=== PATIENT | female | born 1945 | race Caucasian/White ===

== ENCOUNTER 2018-07-21 11:49 | Observation (INO) ==
[2018-07-21] MEDS ORDERED: MAG HYDROX/ALUMINUM HYD/SIMETH 30 ML UDC PO ONE (11:58)
[2018-07-21] MEDS ORDERED: ASPIRIN 81 MG TAB.CHEW PO ONE ×2 (11:58→12:00)
[2018-07-21] MEDS ORDERED: PANTOPRAZOLE SODIUM 40 MG TABLET.EC PO ONE (11:58)
[2018-07-21] MEDS ORDERED: NITROGLYCERIN 0.4 MG/TAB BTL SL PRN (12:00)
[2018-07-21 12:20] LABS: Hematocrit 43.3 % (37.0-47.0); Hemoglobin 14.4 gm/dL (12.5-16.0); Mean Cell Volume 90.6 fl (78-100); Mean Corpuscular Hemoglobin 30.1 pg (27-31); Mean Corpuscular Hgb Conc 33.3 g/dl (32-36); Mean Platelet Volume 9.9 fl (8-12.5); Neutrophil # 10.5 K/mm3 (1.3-6.0); Neutrophil % 72.9 % (42-75.0); Platelet Count 275 K/mm3 (150-450); Red Blood Count 4.78 M/mm3 (4.2-5.4); Red Cell Distribution Width 15.8 % (11.5-14.0); White Blood Count 14.4 K/mm3 (4.0-10.5)
--- NOTE | 2018-07-21 12:21 | ERNOTE ---
Chest Pain/Cardiac HPI Date of Service: 07/21/18 Chief Complaint: Chest Pain Time Seen by Provider: 07/21/18 11:57 Source: patient Exam Limitations: no limitations Immunizations: IMMUNIZATION HX Immunizations Up to Date Yes History of Influenza Vaccine Yes Hx Pneumococcal Vaccination Yes Allergies/Adverse Reactions: Allergies propoxyphene HCl [From Darvon] Allergy (Severe, Verified 07/21/18 15:40) Rapid heart rate hydrocodone [From Panlor (hydrocodone-acetamin)] Adverse Reaction (Mild, Verified 07/21/18 15:40) Itching Home Medications: HOME MEDICATIONS RX: Aspirin [Aspirin Chewable] 81 mg PO DAILY 07/14/12 [Last Taken Unknown] albuterol sulfate HFA 90 mcg/actuation aerosol inhaler 2 puff IH Q4H PRN #8.5 g 12/30/17 [Last Taken Unknown] metoprolol succinate ER 50 mg tablet,extended release 24 hr 75 mg PO DAILY tab 01/21/18 [Last Taken Unknown] fluticasone 50 mcg/actuation nasal spray,suspension 1 spray DENY BID PRN #16 g 03/04/18 [Last Taken Unknown] lacosamide 150 mg tablet 150 mg PO DAILY tab 03/04/18 [Last Taken Unknown] lacosamide 200 mg tablet 200 mg PO 1900 30 Days tab 03/04/18 [Last Taken Unknown] omeprazole 20 mg tablet,delayed release 20 mg PO DAILY #90 tab 05/27/18 [Last Taken Unknown] acetaminophen 325 mg tablet 325 mg PO Q6H PRN 06/11/18 [Last Taken Unknown] amitriptyline 25 mg tablet 25 mg PO HS #30 tab 06/11/18 [Last Taken Unknown] lamotrigine ER 200 mg tablet,extended release 24 hr 100 mg PO BID tab 07/01/18 [Last Taken Unknown] RX: Methocarbamol [Robaxin] 500 mg PO TID 07/21/18 [Last Taken Unknown] RX: predniSONE [Prednisone] 10 mg PO DAILY 07/21/18 [Last Taken Unknown] Timolol Maleate 1 drop LEFTEYE BID 07/21/18 [Last Taken Unknown] Narrative: 72-year-old female comes to the emergency department complaining of 30 minutes of substernal grabbing type chest discomfort. She says it radiates to her left axilla. It is not associated with any shortness of breath nausea or vomiting. The patient has not had symptoms like this before. She reports she has been belching a great deal. Does not get worse with exercise or exertion. Rest does not improve it. Has no history of coronary disease. Patient does have a history of lupus as well as gastroesophageal reflux disease. Last meal was this morning around 8 AM. The patient denies any coughing. She denies any diarrhea fever headache blurred vision or other changes Review of Systems - Review of Systems Constitutional: Present: no symptoms reported EYE: Present: no symptoms reported ENT: Present: no symptoms reported Respiratory: Present: no symptoms reported. Absent: shortness of breath, cough, orthopnea Cardiology: Present: See HPI, chest pain. Absent: palpitations, syncope Gastrointestinal/Abdominal: Present: no symptoms reported. Absent: nausea, vomiting, abdominal pain Genitourinary: Present: no symptoms reported Musculoskeletal: Present: no symptoms reported Skin: Present: no symptoms reported Neurological: Present: no symptoms reported Endocrine: Present: no symptoms reported Hematologic/Lymphatic: Present: no symptoms reported Psych: Present: no symptoms reported All Other Systems: All systems neg except as marked Medical History (Last Reviewed 07/21/18 @ 15:37 by Zulma Agudelo RN) Labyrinthitis Onset Date: Unknown Vertebral compression fracture Onset Date: Unknown DJD (degenerative joint disease) Onset Date: Unknown Hypertension Onset Date: Unknown Anemia Onset Date: Unknown Brain aneurysm Onset Date: ~12/2014 coil placed [facility] Headache Onset Date: Unknown Knee joint effusion Onset Date: Unknown Right ACL tear Onset Date: ~10/17/12 ACL/PCL Right knee-partial Sarcoidosis Onset Date: Unknown Shingles Onset Date: Unknown Asthma Onset Date: Unknown Epileptic seizure, generalized Onset Date: Unknown Dr. Garcia [facility] Neurology-results from the aneurysms-EEG Surgical History: Surgical History (Last Reviewed 07/21/18 @ 15:37 by Zulma Agudelo RN) History of colonoscopy Onset Date: ~2011 Dr. Al hyperplastic polyp, repeat 5 years; History of dilation and curettage Onset Date: Unknown History of esophagogastroduodenoscopy (EGD) Onset Date: ~09/14/16 repeat in 5 years History of lumpectomy Onset Date: Unknown History of nephrectomy Onset Date: Unknown after trauma age 15 History of splenectomy Onset Date: Unknown Family History: Family History (Last Updated 07/21/18 @ 15:40 by Zulma Agudelo RN) Father Myocardial infarction Hypertension Macular degeneration CVA (cerebral vascular accident) Family/Other Diabetes Grandparent Cancer sibling/unsure Glaucoma Grandparent Mother Arthritis Myocardial infarction Glaucoma Hypertension Son Lupus Aunt Glaucoma Uncle Glaucoma Son DM type 2 (diabetes mellitus, type 2) Daughter Colon malignancy Social History: Preferred Language Argentine Do you have any anabaptism or Yes: Confucianist cultural preference? Smoking Status Never smoker Abuse History No History of abuse Psych History No pertinent hx Alcohol Use none Drug Use none (Last Updated 07/17/18 @ 19:56 by Pradeep Mendez DO) No Social History Section defined Physical Exam - Physical Exam General Appearance: Present: wd/wn, alert, other - Patient does appear uncomfortable holding her right hand against her breast bone Head Exam: Present: normal inspection, no evidence of injury Eye Exam: Normal inspection: bilateral, PERRL: bilateral, EOMI: bilateral Ears, Nose, Throat: Present: normal ENT inspection, normal pharynx Neck: Present: normal inspection, nontender Respiratory: Present: no respiratory distress, normal breath sounds, no accessory muscle use, chest nontender, lungs clear Cardiovascular/Chest: Present: regular rate, rhythm, no murmur, normal peripheral pulses Gastrointestinal/Abdominal: Present: normal bowel sounds, nontender, nondistended, soft Back Exam: Present: normal inspection, normal range of motion, no CVA tenderness, no vertebral tenderness Extremity Exam: Present: normal inspection, non-tender, normal range of motion, no edema Neurological Exam: Present: alert, oriented, normal mood/affect, no motor/sensory deficits Skin Exam: Present: normal color, warm/dry Lymphatic Exam: Present: no adenopathy Progress - Results and Orders Patient's Lab Results:: I have reviewed the patient's lab results. - Vital Signs Patient's Vital Signs:: I have reviewed the patient's vital signs. Vital Signs: Vital Signs 07/21/18 11:52 Temperature 36.3 C Pulse Rate 81 Respiratory Rate 16 Blood Pressure 199/97 H O2 Sat by Pulse Oximetry 94 - EKG EKG #1 EKG: NSR EKG read: Interp. by me EKG Comments: Sinus rhythm ventricular rate of 81, [place] interval is slightly long at 209, axis is normal. No ST elevation. No T wave abnormalities - Progress/Reassessment Chief Complaint: Chest Pain Progress:: Improved Progress Note-Subjective: 07/21/18 12:45 P. Patient received Maalox. She reported complete resolution of her symptoms. 10-15 minutes later they started to come back. The patient was given sublingual nitroglycerin. EKG is normal. Had good response to Maalox. First set of troponin is negative. Plan - Plan Plan: I spoke with Dr. Duque. The patient had a stress test but it was many years ago. He agrees with admitting the patient to the hospital as observation and getting a stress test. The patient is presently chest pain-free. I will apply Nitropaste to make sure the pain stays away Departure Clinical Impression: Chest pain - Departure Disposition: Still a patient Condition: Good
[2018-07-21 12:35] LABS: Anion Gap 11.9 mmol/L (6.8-13.8); Blood Urea Nitrogen 13 mg/dL (3-23); Carbon Dioxide 26.8 mmol/L (24-32.6); Chloride 99 mmol/L (97-106); Glucose * 91 mg/dL (70-110); Potassium 3.7 mmol/L (3.4-4.6); Sodium 134 mmol/L (132-142); Total Protein 6.8 gm/dL (6.2-8.2)
[2018-07-21 12:36] LABS: ALT 41 U/L (19-67); AST 14 U/L (0-48); Alkaline Phosphatase * 61 U/L (50-170); Bilirubin, Total 0.6 mg/dL (0.0-1.1); Ca. Corrected For Albumin 9.5 mg/dL (8.4-10.2); Troponin I Less than 0.017 ng/mL (0.00-0.10)
--- NOTE | 2018-07-21 20:20 | HP ---
Chief Complaint - Chief Complaint Date of Service: 07/21/18 Time of Service: 16:00 Chief Complaint: Chest Pain History of Present Illness: Abbey is a 72 yo female with Sarcoidosis who presents with chest pain. She denies any out of the ordinary activities, change in diet, or medication change. She has otherwise been feeling well but today and mid sternum chest pain. It has improved now. She thinks it improved on its own. Initial work up in the ER was negative for acute WI with normal troponin and normal EKG. Medical History (Last Reviewed 07/21/18 @ 15:37 by Zulma Agudelo RN) Labyrinthitis Onset Date: Unknown Vertebral compression fracture Onset Date: Unknown DJD (degenerative joint disease) Onset Date: Unknown Hypertension Onset Date: Unknown Anemia Onset Date: Unknown Brain aneurysm Onset Date: ~12/2014 coil placed [facility] Headache Onset Date: Unknown Knee joint effusion Onset Date: Unknown Right ACL tear Onset Date: ~10/17/12 ACL/PCL Right knee-partial Sarcoidosis Onset Date: Unknown Shingles Onset Date: Unknown Asthma Onset Date: Unknown Epileptic seizure, generalized Onset Date: Unknown Dr. Garcia [facility] Neurology-results from the aneurysms-EEG Surgical History: Surgical History (Last Reviewed 07/21/18 @ 15:37 by Zulma Agudelo RN) History of colonoscopy Onset Date: ~2011 Dr. Al hyperplastic polyp, repeat 5 years; History of dilation and curettage Onset Date: Unknown History of esophagogastroduodenoscopy (EGD) Onset Date: ~09/14/16 repeat in 5 years History of lumpectomy Onset Date: Unknown History of nephrectomy Onset Date: Unknown after trauma age 15 History of splenectomy Onset Date: Unknown Family History: Family History (Last Updated 07/21/18 @ 15:40 by Zulma Agudelo RN) Father Myocardial infarction Hypertension Macular degeneration CVA (cerebral vascular accident) Family/Other Diabetes Grandparent Cancer sibling/unsure Glaucoma Grandparent Mother Arthritis Myocardial infarction Glaucoma Hypertension Son Lupus Aunt Glaucoma Uncle Glaucoma Son DM type 2 (diabetes mellitus, type 2) Daughter Colon malignancy Social History: Patient Lives/Resources With Spouse Utilized Preferred Language [place] Do you have any yarsani or No cultural preference? Smoking Status Never smoker Have you smoked in the past 12 No months Do you dip or chew tobacco No Abuse History No History of abuse Psych History No pertinent hx Alcohol Use none Drug Use none (Last Updated 07/17/18 @ 19:56 by Pradeep Mendez DO) No Social History Section defined Review Of Systems (GEN) - Review of Systems Generalized/Overall Review: Present: Weakness. Absent: Chills, Fever EENTM: Present: No Symptoms Reported Respiratory: Absent: Cough, Shortness of Breath Cardiac: Present: Chest Pain. Absent: Edema Abdominal: Absent: Nausea, Vomiting Genitourinary: Present: No Symptoms Reported Musculoskeletal: Present: Back Pain Neurological: Present: No Symptoms Reported, Weakness Skin: Present: No Symptoms Reported Endocrine: Present: No Symptoms Reported Immunizations: IMMUNIZATION HX Immunizations Up to Date Yes History of Influenza Vaccine Yes Hx Pneumococcal Vaccination Yes Allergies/Adverse Reactions: Allergies Allergy/AdvReac Type Severity Reaction Status Date / Time propoxyphene HCl Allergy Severe Rapid Verified 07/31/18 10:12 [From Darvon] heart rate hydrocodone AdvReac Mild Itching Verified 07/31/18 10:12 [From Panlor (hydrocodone-acetamin)] Home Medications: HOME MEDICATIONS Aspirin [Aspirin Chewable] 81 mg PO DAILY 07/14/12 [Last Taken Unknown] albuterol sulfate HFA 90 mcg/actuation aerosol inhaler 2 puff IH Q4H PRN #8.5 g 12/30/17 [Last Taken Unknown] metoprolol succinate ER 50 mg tablet,extended release 24 hr 75 mg PO DAILY tab 01/21/18 [Last Taken Unknown] fluticasone 50 mcg/actuation nasal spray,suspension 1 spray DENY BID PRN #16 g 03/04/18 [Last Taken Unknown] lacosamide 150 mg tablet 150 mg PO DAILY tab 03/04/18 [Last Taken Unknown] lacosamide 200 mg tablet 200 mg PO 1900 30 Days tab 03/04/18 [Last Taken Unk nown] omeprazole 20 mg tablet,delayed release 20 mg PO DAILY #90 tab 05/27/18 [Last Taken Unknown] acetaminophen 325 mg tablet 325 mg PO Q6H PRN 06/11/18 [Last Taken Unknown] amitriptyline 25 mg tablet 25 mg PO HS #30 tab 06/11/18 [Last Taken Unknown] lamotrigine ER 200 mg tablet,extended release 24 hr 100 mg PO BID tab 07/01/18 [Last Taken Unknown] Timolol Maleate 1 drop LEFTEYE BID 07/21/18 [Last Taken Unknown] predniSONE [Prednisone] 10 mg PO DAILY 07/21/18 [Last Taken Unknown] methocarbamol 500 mg tablet 500 mg PO TID PRN #90 tab 07/24/18 [Last Taken Unknown] brinzolamide 1 %-brimonidine 0.2 % eye drops,suspension 1 drp OP ONCE #8 ml 07/31/18 [Last Taken Unknown] Exam - Exam Vital Signs: Vital Signs - Last Taken Temp 36.5 C 07/21/18 15:46 Pulse 75 07/21/18 15:46 Resp 18 07/21/18 15:46 BP 156/92 H 07/21/18 15:46 Pulse Ox 95 07/21/18 15:46 Constitutional: Present: Alert, Oriented x3, Cooperative, No distress ENT Exam: Present: hearing grossly normal Eye Exam: bilateral eye: normal inspection Respiratory: Present: lungs clear, normal breath sounds Cardiovascular/Chest: Present: regular rate, rhythm, no murmur Peripheral Pulses: radial (R): 2+, radial (L): 2+ Abdomen: Present: Normal bowel sounds, soft, nontender, nondistended Skin Exam: Present: normal color, warm/dry, no cyanosis Appearance: Present: appropriate appearance, appropriate insight Eye contact: Present: cooperative, good eye contact, normal speech Thoughts: Present: normal thought pattern, no apparent hallucination Diagnostic Studies: Abnormal Lab Results 07/21/18 07/21/18 Range/Units 12:15 12:15 WBC 14.4 H (4.0-10.5) K/mm3 RDW 15.8 H (11.5-14.0) % Immature Gran # (Auto) 0.04 H (0.000-0.0310) K/mm3 Lymphocytes % 15.1 L (20-51) % Monocytes % 10.1 H (0.0-9) % Neutrophils # 10.5 H (1.3-6.0) K/mm3 Monocytes # 1.5 H (0.0-1.0) k/mm3 Albumin 3.0 L (3.4-5.0) gm/dl Laboratory Results WBC 14.4 K/mm3 (4.0-10.5) H 07/21/18 12:15 RBC 4.78 M/mm3 (4.2-5.4) 07/21/18 12:15 Hgb 14.4 gm/dL (12.5-16.0) 07/21/18 12:15 Hct 43.3 % (37.0-47.0) 07/21/18 12:15 MCV 90.6 fl (78-100) 07/21/18 12:15 MCH 30.1 pg (27-31) 07/21/18 12:15 MCHC 33.3 g/dl (32-36) 07/21/18 12:15 RDW 15.8 % (11.5-14.0) H 07/21/18 12:15 Plt Count 275 K/mm3 (150-450) 07/21/18 12:15 MPV 9.9 fl (8-12.5) 07/21/18 12:15 Immature Gran % (Auto) 0.30 % (0.001-0.429) 07/21/18 12:15 Immature Gran # (Auto) 0.04 K/mm3 (0.000-0.0310) H 07/21/18 12:15 Neutrophils % 72.9 % (42-75.0) 07/21/18 12:15 Lymphocytes % 15.1 % (20-51) L 07/21/18 12:15 Monocytes % 10.1 % (0.0-9) H 07/21/18 12:15 Eosinophils % 1.3 % (0.0-3.0) 07/21/18 12:15 Basophils % 0.3 % (0.0-1.0) 07/21/18 12:15 Nucleated RBC % 0.0 k/mm3 (0-1) 07/21/18 12:15 Neutrophils # 10.5 K/mm3 (1.3-6.0) H 07/21/18 12:15 Lymphocytes # 2.16 k/mm3 (1.5-3.5) 07/21/18 12:15 Monocytes # 1.5 k/mm3 (0.0-1.0) H 07/21/18 12:15 Eosinophils # 0.2 k/mm3 (0.0-0.7) 07/21/18 12:15 Absolute Basophils 0.1 k/mm3 (0.0-0.1) 07/21/18 12:15 Sodium 134 mmol/L (132-142) 07/21/18 12:15 Plasma Sodium 134 mmol/L (130-142) 07/21/18 12:15 Potassium 3.7 mmol/L (3.4-4.6) 07/21/18 12:15 Chloride 99 mmol/L (97-106) 07/21/18 12:15 Carbon Dioxide 26.8 mmol/L (24-32.6) 07/21/18 12:15 Anion Gap 11.9 mmol/L (6.8-13.8) 07/21/18 12:15 BUN 13 mg/dL (3-23) 07/21/18 12:15 Creatinine 0.93 mg/dL (0.4-1.4) 07/21/18 12:15 Est GFR (Non-Af Amer) 63 mL/min (60-130) 07/21/18 12:15 BUN/Creatinine Ratio 14.0 (9.0-21.6) 07/21/18 12:15 Random Glucose 91 mg/dL (70-110) 07/21/18 12:15 Calcium 9.0 mg/dL (7.9-10.9) 07/21/18 12:15 Calcium Adj for Albumin 9.5 mg/dL (8.4-10.2) 07/21/18 12:15 Total Bilirubin 0.6 mg/dL (0.0-1.1) 07/21/18 12:15 AST 14 U/L (0-48) 07/21/18 12:15 ALT 41 U/L (19-67) 07/21/18 12:15 Alkaline Phosphatase 61 U/L (50-170) 07/21/18 12:15 Troponin I Less than 0.017 ng/mL (0.00-0.10) 07/21/18 18:20 Total Protein 6.8 gm/dL (6.2-8.2) 07/21/18 12:15 Albumin 3.0 gm/dl (3.4-5.0) L 07/21/18 12:15 Assessment/Plan - Narrative Narrative: Will admit to observation for chest pain. Initial work up negative. Will place on telemetry and obtain serial troponin. Once ruled out for acute WI may be discharged to home. - Assessment/Plan (1) Chest pain Problem: Resolved Qualifiers: Chest pain type: unspecified Qualified Code(s): R07.9 - Chest pain, unspecified
--- NOTE | 2018-07-21 20:25 | DS ---
(1) Chest pain Problem: Resolved Qualifiers: Chest pain type: unspecified Qualified Code(s): R07.9 - Chest pain, unspecified Description of Stay: Abbey is a 72 yo female admitted for chest pain. Initial evaluation in the ER was negative for acute FL with normal sinus rhythm on EKG and normal troponin. She was admitted to observation and on telemetry. Repeat troponin in 6 hours was also negative and there were no electrical changes on telemetry. She will be discharged to home with plans for an outpatient stress test. Procedures Performed: none Results and Findings: Lab Pending Results 07/21/18 12:15: WBC 14.4 H, RBC 4.78, Hgb 14.4, Hct 43.3, MCV 90.6, MCH 30.1, MCHC 33.3, RDW 15.8 H, Plt Count 275, MPV 9.9, Immature Gran % (Auto) 0.30, Immature Gran # (Auto) 0.04 H, Neutrophils % 72.9, Lymphocytes % 15.1 L, Monocytes % 10.1 H, Eosinophils % 1.3, Basophils % 0.3, Nucleated RBC % 0.0, Neutrophils # 10.5 H, Lymphocytes # 2.16, Monocytes # 1.5 H, Eosinophils # 0.2, Absolute Basophils 0.1 07/21/18 12:15: Sodium 134, Plasma Sodium 134, Potassium 3.7, Chloride 99, Carbon Dioxide 26.8, Anion Gap 11.9, BUN 13, Creatinine 0.93, Est GFR (Non-Af Amer) 63, BUN/Creatinine Ratio 14.0, Random Glucose 91, Calcium 9.0, Calcium Adj for Albumin 9.5, Total Bilirubin 0.6, AST 14, ALT 41, Alkaline Phosphatase 61, Troponin I Less than 0.017, Total Protein 6.8, Albumin 3.0 L 07/21/18 18:20: Troponin I Less than 0.017 Discharge Location: Home Disposition: Home self-care Condition: Good Discharge Activity: Activity as tolerated Discharge Diet: Low salt Referrals: Andriy Duque DO [Primary Care Provider] - One Week Problem Oriented Discharge Instructions to Patient/Family: Chest Pain Observation Complete Home Medications List: Complete Home Medication List: Aspirin [Aspirin Chewable] 81 mg PO DAILY 07/14/12 albuterol sulfate HFA 90 mcg/actuation aerosol inhaler 2 puff IH Q4H PRN #8.5 g 12/30/17 metoprolol succinate ER 50 mg tablet,extended release 24 hr 75 mg PO DAILY tab 01/21/18 fluticasone 50 mcg/actuation nasal spray,suspension 1 spray DENY BID PRN #16 g 03/04/18 lacosamide 150 mg tablet 150 mg PO DAILY tab 03/04/18 lacosamide 200 mg tablet 200 mg PO 1900 30 Days tab 03/04/18 omeprazole 20 mg tablet,delayed release 20 mg PO DAILY #90 tab 05/27/18 acetaminophen 325 mg tablet 325 mg PO Q6H PRN 06/11/18 amitriptyline 25 mg tablet 25 mg PO HS #30 tab 06/11/18 lamotrigine ER 200 mg tablet,extended release 24 hr 100 mg PO BID tab 07/01/18 Methocarbamol [Robaxin] 500 mg PO TID 07/21/18 Timolol Maleate 1 drop LEFTEYE BID 07/21/18 predniSONE [Prednisone] 10 mg PO DAILY 07/21/18
[2018-07-21 21:25] VITALS: BP 133/97
== END 2018-07-21 21:40 | disposition home or self-care (01) ==
LOC: ER 11:49 → MS 11:49
PROVIDERS: ADMIT Family Medicine; ATTEND Family Medicine
DX: R07.9 Chest pain, unspecified
CPT/HCPCS: 36415; 71010; 71045; 80053; 84484; 85025; 93005; 99285